=== PATIENT | female | born 1985 | race Caucasian/White ===

== ENCOUNTER 2018-08-06 13:07 | Emergency (ER) | payer OTHER ==
[2018-08-06] MEDS ORDERED: SODIUM CHLORIDE 0.9% 1,000 ML IV STA (14:46)
[2018-08-06 15:20] LABS: Basophils % (A) 0 %; Eosinophils # (A) 0.2 k/uL (0-0.7); Eosinophils % (A) 2 %; HCT 41.1 % (34.0-46.0); HGB 13.6 gm/dL (11.4-16.0); Lymphocytes # (A) 1.8 k/uL (1.0-4.8); Lymphocytes % (A) 22 %; MCH 28.5 pg (25.0-35.0); MCHC 33.2 g/dL (31.0-37.0); MCV 85.9 fL (80.0-100.0); Mean Platelet Volume 6.9; Monocytes # (A) 0.4 k/uL (0-1.0); Monocytes % (A) 5 %; Neutrophils # (A) 5.8 k/uL (1.3-7.7); Neutrophils % (A) 70 %; Platelet Count 418 k/uL (150-450); RBC 4.78 m/uL (3.80-5.40); RDW 13.3 % (11.5-15.5); WBC 8.4 k/uL (3.8-10.6)
[2018-08-06 15:27] LABS: Appearance,Urine Cloudy (Clear); Bilirubin,Urine Negative (Negative); Blood,Urine Large (Negative); Budding Yeast,Urine Moderate /hpf; Color,Urine Light Brown; Glucose,Urine (UA) Negative (Negative); Ketones,Urine Negative (Negative); Leukocyte Esterase,Urine Small (Negative); Nitrite,Urine Negative (Negative); Protein,Urine 1+ (Negative); RBC,Urine >182 /hpf (0-5); Specific Gravity,Urine 1.014 (1.001-1.035); Squamous Epithelial Cell,Urine 1 /hpf (0-4); Urobilinogen,Urine <2.0 mg/dL (<2.0)
[2018-08-06 15:40] LABS: ALT 31 U/L (9-52); AST 23 U/L (14-36); Albumin 4.6 g/dL (3.5-5.0); Alkaline Phosphatase 57 U/L (38-126); Anion Gap 9 mmol/L; Blood Urea Nitrogen 13 mg/dL (7-17); Calcium 9.4 mg/dL (8.4-10.2); Carbon Dioxide 26 mmol/L (22-30); Chloride 107 mmol/L (98-107); Glucose 83 mg/dL (74-99); Potassium 4.2 mmol/L (3.5-5.1); Sodium 142 mmol/L (137-145); Total Bilirubin 0.4 mg/dL (0.2-1.3); Total Protein 8.1 g/dL (6.3-8.2)
--- NOTE | 2018-08-06 15:50 | US ---
EXAMINATION TYPE: US transvaginal DATE OF EXAM: 08/06/2018 COMPARISON: NONE CLINICAL HISTORY: Patient bleeding x 1 month TECHNIQUE: Transvaginal (TV). Date of LMP: 07/08/18 EXAM MEASUREMENTS: Uterus: 8.4 x 3.2 x 4.4 cm Endometrial Stripe: 0.5 cm Right Ovary: 2.6 x 1.9 x 2.2 cm Left Ovary: 2.7 x 2.3 x 2.0 cm 1. Uterus: Retroverted wnl 2. Endometrium: 0.5cm 3. Right Ovary: wnl 4. Left Ovary: wnl 5. Bilateral Adnexa: wnl 6. Posterior cul-de-sac: wnl IMPRESSION: 1. Normal pelvic ultrasound
--- NOTE | 2018-08-06 16:21 | ED ---
General Adult HPI - General Chief complaint: Vaginal Bleeding Stated complaint: Female Source: patient, RN notes reviewed, old records reviewed Mode of arrival: ambulatory Limitations: no limitations - History of Present Illness Initial comments: 32-year-old female patient with an open past medical history presents to ED with approximately 1 month of vaginal bleeding. Patient states that she has history of irregular periods, history of tubal ligation proximally 6 years ago. Patient denies any oral contraception. Patient states that she had vaginal bleeding that started as light spotting approximately 1 month ago, has progressively increased, patient states that in the last 3 days she has soaked tampon in approximately 30 minutes approximately 4-5 times. Patient denies pain with urination. Patient denies syncope or presyncope. Patient has history of anemia. Patient denies chest pain, shortness of breath. Systemic: Pt denies fatigue, myalgia, fever/chills, rash. Pt denies weakness, night sweats, weight loss. Neuro: Pt denies headache, visual disturbances, syncope or pre-syncope. HEENT: Pt denies ocular discharge or irritation, otalgia, rhinorrhea, pharyngitis or notable lymphadenopathy. Cardiopulmonary: Pt denies chest pain, SOB, heart palpitations, dyspnea on exertion. Abdominal/GI: Pt denies abdominal pain, n/v/d. : Pt denies dysuria, burning w/ urination, frequency/urgency. Denies new onset urinary or bowel incontinence. MSK: Pt denies myalgia, loss of strength or function in extremities. Neuro: Pt denies new onset weakness, paresthesias. - Related Data Home Medications Medication Instructions Recorded Confirmed Multivitamin,Therapeutic [Thera] 1 tab PO DAILY 08/06/18 08/06/18 Allergies Allergy/AdvReac Type Severity Reaction Status Date / Time Iodinated Contrast- Oral and Allergy Nausea & Verified 08/06/18 14:16 IV Dye Vomiting Review of Systems ROS Statement: Those systems with pertinent positive or pertinent negative responses have been documented in the HPI. ROS Other: All systems not noted in ROS Statement are negative. Past Medical History Past Medical History: No Reported History History of Any Multi-Drug Resistant Organisms: None Reported Past Surgical History: Section, Tubal Ligation Past Psychological History: No Psychological Hx Reported Smoking Status: Current every day smoker Past Alcohol Use History: Occasional Past Drug Use History: None Reported General Exam - General Exam Comments Initial Comments: Constitutional: NAD, AOX3, Pt has pleasant affect. HEENT: NC/AT, trachea midline, neck supple, no lymphadenopathy. Posterior pharynx non erythematous, without exudates. External ears appear normal, without discharge. Mucous membranes moist. Eyes PERRLA, EOM intact. There is no scleral icterus. No pallor noted. Cardiopulmonary: RRR, no murmurs, rubs or gallops, no JVD noted. Lungs CTAB in anterior and posterior almonte. No peripheral edema. Abdominal exam: Abdomen soft and non-distended. Abdomen non-tender to palpation in all 4 quadrants. Bowel sounds active in LLQ. No hepatosplenomegaly. No ecchymosis Neuro: CN II-XII grossly intact. No nuchal rigidity. MSK: No posterior calf tenderness bilaterally, homans sign negative bilaterally. Posterior tibialis and radial pulse +2 bilaterally. Sensation intact in upper and lower extremities. Full active ROM in upper and lower extremities, 5/5 stregnth. Limitations: no limitations Course Vital Signs 08/06/18 13:13 Temperature 97.8 F Pulse Rate 92 Respiratory 18 Rate Blood Pressure 122/67 O2 Sat by Pulse 100 Oximetry Medical Decision Making - Medical Decision Making 32-year-old female patient with an open past medical history presents to ED with approximately 1 month of vaginal bleeding. Patient states that she has history of irregular periods, history of tubal ligation proximally 6 years ago. Patient denies any oral contraception. Patient states that she had vaginal bleeding that started as light spotting approximately 1 month ago, has progressively increased, patient states that in the last 3 days she has soaked tampon in approximately 30 minutes approximately 4-5 times. Patient denies pain with urination. Patient denies syncope or presyncope. Patient has history of anemia. Patient denies chest pain, shortness of breath. Physical exam did not reveal any acute pathology. Laboratory investigation was non- impressive. Hemoglobin stable. Transvaginal ultrasound did not reveal any acute pathology. Patient diagnosed with dysfunctional uterine bleeding. 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 Patient to follow with PCP in 1-2 days. Patient to return to ED if new signs or symptoms develop including syncope, presyncope, shortness of breath, dizziness, abdominal pain, chest pain, any other new symptoms. Case discussed with Dr. Quintana. - Lab Data Result diagrams: 08/06/18 15:00 08/06/18 15:00 Lab Results 08/06/18 08/06/18 08/06/18 Range/Units 15:00 15:00 15:00 WBC 8.4 (3.8-10.6) k/uL RBC 4.78 (3.80-5.40) m/uL Hgb 13.6 (11.4-16.0) gm/dL Hct 41.1 (34.0-46.0) % MCV 85.9 (80.0-100.0) fL MCH 28.5 (25.0-35.0) pg MCHC 33.2 (31.0-37.0) g/dL RDW 13.3 (11.5-15.5) % Plt Count 418 (150-450) k/uL Neutrophils % 70 % Lymphocytes % 22 % Monocytes % 5 % Eosinophils % 2 % Basophils % 0 % Neutrophils # 5.8 (1.3-7.7) k/uL Lymphocytes # 1.8 (1.0-4.8) k/uL Monocytes # 0.4 (0-1.0) k/uL Eosinophils # 0.2 (0-0.7) k/uL Basophils # 0.0 (0-0.2) k/uL Sodium 142 (137-145) mmol/L Potassium 4.2 (3.5-5.1) mmol/L Chloride 107 (98-107) mmol/L Carbon Dioxide 26 (22-30) mmol/L Anion Gap 9 mmol/L BUN 13 (7-17) mg/dL Creatinine 0.75 (0.52-1.04) mg/dL Est GFR (CKD-EPI)AfAm >90 (>60 ml/min/1.73 sqM) Est GFR (CKD-EPI)NonAf >90 (>60 ml/min/1.73 sqM) Glucose 83 (74-99) mg/dL Calcium 9.4 (8.4-10.2) mg/dL Total Bilirubin 0.4 (0.2-1.3) mg/dL AST 23 (14-36) U/L ALT 31 (9-52) U/L Alkaline Phosphatase 57 (38-126) U/L Total Protein 8.1 (6.3-8.2) g/dL Albumin 4.6 (3.5-5.0) g/dL Urine Color Urine Appearance (Clear) Urine pH (5.0-8.0) Ur Specific [place] (1.001-1.035) Urine Protein (Negative) Urine Glucose (UA) (Negative) Urine Ketones (Negative) Urine Blood (Negative) Urine Nitrite (Negative) Urine Bilirubin (Negative) Urine Urobilinogen (<2.0) mg/dL Ur Leukocyte Esterase (Negative) Urine RBC (0-5) /hpf Urine WBC (0-5) /hpf Ur Squamous Epith Cells (0-4) /hpf Urine Yeast (Budding) (None) /hpf Urine HCG, Qual Not Detected (Not Detectd) 08/06/18 Range/Units 15:00 WBC (3.8-10.6) k/uL RBC (3.80-5.40) m/uL Hgb (11.4-16.0) gm/dL Hct (34.0-46.0) % MCV (80.0-100.0) fL MCH (25.0-35.0) pg MCHC (31.0-37.0) g/dL RDW (11.5-15.5) % Plt Count (150-450) k/uL Neutrophils % % Lymphocytes % % Monocytes % % Eosinophils % % Basophils % % Neutrophils # (1.3-7.7) k/uL Lymphocytes # (1.0-4.8) k/uL Monocytes # (0-1.0) k/uL Eosinophils # (0-0.7) k/uL Basophils # (0-0.2) k/uL Sodium (137-145) mmol/L Potassium (3.5-5.1) mmol/L Chloride (98-107) mmol/L Carbon Dioxide (22-30) mmol/L Anion Gap mmol/L BUN (7-17) mg/dL Creatinine (0.52-1.04) mg/dL Est GFR (CKD-EPI)AfAm (>60 ml/min/1.73 sqM) Est GFR (CKD-EPI)NonAf (>60 ml/min/1.73 sqM) Glucose (74-99) mg/dL Calcium (8.4-10.2) mg/dL Total Bilirubin (0.2-1.3) mg/dL AST (14-36) U/L ALT (9-52) U/L Alkaline Phosphatase (38-126) U/L Total Protein (6.3-8.2) g/dL Albumin (3.5-5.0) g/dL Urine Color Light Brown Urine Appearance Cloudy H (Clear) Urine pH 8.0 (5.0-8.0) Ur Specific [place] 1.014 (1.001-1.035) Urine Protein 1+ H (Negative) Urine Glucose (UA) Negative (Negative) Urine Ketones Negative (Negative) Urine Blood Large H (Negative) Urine Nitrite Negative (Negative) Urine Bilirubin Negative (Negative) Urine Urobilinogen <2.0 (<2.0) mg/dL Ur Leukocyte Esterase Small H (Negative) Urine RBC >182 H (0-5) /hpf Urine WBC 40 H (0-5) /hpf Ur Squamous Epith Cells 1 (0-4) /hpf Urine Yeast (Budding) Moderate H (None) /hpf Urine HCG, Qual (Not Detectd) Disposition Clinical Impression: Dysfunctional uterine bleeding Disposition: HOME SELF-CARE Condition: Good Instructions: Dysfunctional Uterine Bleeding (ED) Additional Instructions: Patient to adhere to previously discussed treatment plan and will take medication(s) as directed. Patient to follow up with PCP in 1-2 days. Patient to return to ED if symptoms do not improve. Is patient prescribed a controlled substance at d/c from ED?: No Referrals: Michelle Olivas MD [Primary Care Provider] - 1-2 days Constance Addison DO [Doctor of Osteopathic Medicine] - 1-2 days Time of Disposition: 17:08
[2018-08-06 17:24] VITALS: BP 138/63; PULSE 80; RESP 17; TEMP 97.3
== END 2018-08-06 17:24 | disposition home or self-care (01) ==
LOC: EC 13:07
DX: N93.8 Other specified abnormal uterine and vaginal bleeding (principal); Z98.51 Tubal ligation status; Z91.041 Radiographic dye allergy status; F17.200 Nicotine dependence, unspecified, uncomplicated
CPT/HCPCS: 36415; 76830; 80053; 81001; 81025; 85025; 87086; 93976; 96360; 99284

== ENCOUNTER 2018-12-07 07:24 | Day surgery (SDC) | payer OTHER ==
--- NOTE | 2018-12-03 16:22 | HP ---
HISTORY AND PHYSICAL This is a 33-year-old female, 2, para 2-0-0-2, status post tubal ligation, who is presenting requesting NovaSure endometrial ablation. The patient states that her menses are lasting up to 14 days in duration with large clot passage. Endometrial biopsy was performed in the office revealing disordered proliferative endometrium, on 09/18/2018. The patient is aware of the risks and benefits of this procedure and would like to proceed. Information has been given and reviewed by her thoroughly. REVIEW OF SYSTEMS: Otherwise negative. PAST MEDICAL HISTORY: Negative. PAST SURGICAL HISTORY: section, tubal ligation. CURRENT MEDICATIONS: Multivitamin daily, vitamin C daily. ALLERGIES: Include contrast dye to which reports swelling. FAMILY HISTORY: Significant for hyperlipidemia and diabetes, as well as carpal tunnel syndrome. REPRODUCTIVE HISTORY: Significant for sections x2, 2009 and 2012. 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 EXAM: She is a pleasant white female who is 5 foot 2 inches, 222 pounds, BMI 40.1, blood pressure 110/80. HEENT exam reveals no thyromegaly, good dentition, no obvious lymphadenopathy. CHEST: Clear to auscultation in all almonte anteriorly and posteriorly. ABDOMEN: Soft, moderately obese, nontender, active bowel sounds, no organosplenomegaly. Breasts are bilaterally symmetric to inspection with no skin changes, axillary adenopathy, discernible lesions or masses or nipple discharge. Cardiac exam reveals regular rate and rhythm with no murmur, click, or rub. On pelvic exam, uterus is mobile, small, anteverted, anteflexed with negative adnexa bilaterally. Cervix is within normal limits to inspection. Vaginal vault is negative. Rectal exam reveals good tone, FIT, negative stool. IMPRESSION: Menometrorrhagia, requesting NovaSure endometrial ablation. PLAN: We will proceed with hysteroscopy, NovaSure endometrial ablation. The risks, benefits, and alternatives of this procedure have been discussed with the patient in detail, all questions answered. We will proceed as above. MMODL / IJN: [id number] /
[2018-12-04 11:08] VITALS: BMI 42.5
[~2018-12-07 07:24] MED LIST: DEXAMETHASONE SOD PHOSPHATE 10 MG/ML 1 ML VIAL IV ONE; LACTATED RINGERS 1,000 ML IV SCH; LIDOCAINE 1% 20 ML VIAL (10MG/ML) FOR IV START INTRADERMA PRN; MIDAZOLAM (PF) 2 MG/2 ML VIAL IV PRN; ONDANSETRON 4 MG/2 ML VIAL IVP ONE; Pre Op ABX Message 1 EACH MISC MISCELLANE ONE; fentaNYL (PF) 50 MCG/ML 2 ML AMP IV PRN
[2018-12-07] MEDS ORDERED: KETOROLAC 30 MG/ML 1 ML VIAL ONE (08:41)
[2018-12-07] MEDS ORDERED: MIDAZOLAM 2 MG/2 ML VIAL ONE (08:41)
[2018-12-07] MEDS ORDERED: PROPOFOL 10 MG/ML 20 ML VIAL IV ONE (08:41)
[2018-12-07] MEDS ORDERED: fentaNYL (PF) 50 MCG/ML 2 ML AMP ONE (08:41)
[2018-12-07 09:22] VITALS: TEMP 96.9
--- NOTE | 2018-12-07 09:26 | P.OP ---
Date of Procedure: 12/07/18 Preoperative Diagnosis: Menorrhagia Postoperative Diagnosis: same, normal-appearing endometrial cavity Procedure(s) Performed: hysteroscopy, NovaSure endometrial ablation Anesthesia: LOREEA Surgeon: Karla Abrams Estimated Blood Loss (ml): 10 IV fluids (ml): 500 Urine output (ml): 150 Pathology: none sent Condition: stable Disposition: PACU Description of Procedure: patient is brought to the operating suite and a general anesthetic is administered without difficulty. She's placed in the dorsal lithotomy position. The appropriate timeout was performed to assure proper patient and procedural identification. Urine hCG is negative. The cervix, vagina, perineal bodies are all prepped and draped in usual sterile fashion. Examination under anesthesia reveals a retroverted uterus, negative adnexa bilaterally. Bladder is drained for 150 mL of clear yellow urine. The weighted speculum was placed into the vagina. The anterior lip of the cervix is grasped with a double-tooth tenaculum. uterus sounds to a depth of 10.5 cm in the retroverted position. The cervix was gently and systematically dilated using Hanks dilators. Hysteroscope was placed and the cavity is distended with sterile saline. Inspection of the cavity reveals a large amount of proliferative-type appearing tissue, no obvious polyps, fibroids, septa, or defects. Hysteroscope was removed. NovaSure wand is placed and seated properly. Uterine depth of 0.5 cm, width of 4.6 cm is calibrated. For 45 seconds at [address] the procedure is carried out. After this the wand is reduced and removed. Hysteroscope was once again placed and the cavity is inspected, it is noted to contain a fair amount of chart-appearing tissue. Procedure appears to be thorough. All insurance a she was removed from the cervix. Anterior lip is clean and dry. All sponge needle and enhancement counts are correct at the end of procedure. Patient brought back to the recovery room in very good condition with stable vital signs including a pulse of 64, blood pressure 100/49, 100% O2 saturation. Toradol is given prior to leaving the operative suite. She will follow-up with me in the office in 2 weeks.
[2018-12-07 09:50] VITALS: RESP 16
[2018-12-07 10:25] VITALS: PULSE 62
[2018-12-07 10:36] VITALS: BP 125/75
== END 2018-12-07 10:49 | disposition home or self-care (01) ==
LOC: OR 07:24
PROVIDERS: ATTEND Obstetrics & Gynecology
DX: N92.0 Excessive and frequent menstruation with regular cycle (principal); Z98.51 Tubal ligation status; Z83.3 Family history of diabetes mellitus; Z84.89 Family history of other specified conditions; Z91.041 Radiographic dye allergy status
CPT/HCPCS: 81025; 58563; J2250; J1100; J2405; J3010; J1885; J2704

== ENCOUNTER 2022-03-22 10:57 | Emergency (ER) | payer OTHER ==
[2022-03-22 11:14] VITALS: RESP 18; TEMP 98.2
[2022-03-22] MEDS ORDERED: ONDANSETRON 4 MG/2 ML VIAL IVP STA (11:21)
[2022-03-22] MEDS ORDERED: SODIUM CHLORIDE 0.9% 1,000 ML IV STA (11:21)
[2022-03-22] MEDS ORDERED: HYDROmorphone 0.5 MG/0.5 ML SYRINGE IVP STA (11:21)
--- NOTE | 2022-03-22 11:26 | ED ---
Abdominal Pain HPI - General Chief Complaint: Abdominal Pain Stated Complaint: rt sided abd pain Time Seen by Provider: 03/22/22 11:15 Source: patient, RN notes reviewed, old records reviewed Mode of arrival: ambulatory Limitations: no limitations - History of Present Illness Initial Comments: This is a nontoxic appearing 36-year-old female that presents with right upper quadrant abdominal pain since 8:30 this morning after eating chicken and broccoli. Patient states that she had a similar episode earlier in the week which was consistent with gallbladder pain. 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 Patient denies any fevers, no vomiting but does have nausea. Denies diarrhea. MD Complaint: abdominal pain -: hour(s) (since 829) Location: RUQ Radiation: none Severity scale (1-10): 8 Quality: other (Squeezing) Consistency: constant Improves With: other (Manual pressure) Associated Symptoms: nausea - Related Data Home Medications Medication Instructions Recorded Confirmed Cholecalciferol [Vitamin D3 (25 50 mcg PO TH 03/22/22 03/22/22 Mcg = 1000 Iu)] Levothyroxine Sodium [Synthroid] 50 mcg PO DAILY 03/22/22 03/22/22 Allergies Allergy/AdvReac Type Severity Reaction Status Date / Time Iodinated Contrast Media AdvReac Nausea & Verified 03/22/22 12:05 [Iodinated Contrast- Oral Vomiting & and IV Dye] "Sweats" Review of Systems ROS Statement: Those systems with pertinent positive or pertinent negative responses have been documented in the HPI. ROS Other: All systems not noted in ROS Statement are negative. Past Medical History Past Medical History: No Reported History Additional Past Medical History / Comment(s): heavy, frequent periods History of Any Multi-Drug Resistant Organisms: None Reported Past Surgical History: Section, Tubal Ligation Additional Past Surgical History / Comment(s): C/S x2 Past Anesthesia/Blood Transfusion Reactions: Family History of Problems w/ Anesthesia, Postoperative Nausea & Vomiting (PONV) Additional Past Anesthesia/Blood Transfusion Reaction / Comment(s): aunt had a "reaction to anesthesia", not sure what, has never heard of malignant hyperthermia Past Psychological History: No Psychological Hx Reported Past Alcohol Use History: Occasional Past Drug Use History: None Reported General Exam Limitations: no limitations General appearance: alert, in no apparent distress Head exam: Present: atraumatic, normocephalic Eye exam: Present: normal appearance. Absent: scleral icterus, conjunctival injection Neck exam: Present: full ROM. Absent: meningismus Respiratory exam: Present: normal lung sounds bilaterally. Absent: respiratory distress, accessory muscle use Cardiovascular Exam: Present: regular rate, normal rhythm GI/Abdominal exam: Present: soft, tenderness (Right upper quadrant). Absent: rigid Extremities exam: Present: full ROM, normal capillary refill. Absent: tenderness, pedal edema Back exam: Present: normal inspection, full ROM. Absent: tenderness, CVA tenderness (R), CVA tenderness (L), rash noted Neurological exam: Present: alert, oriented X3, normal gait Psychiatric exam: Present: normal affect, normal mood Skin exam: Present: warm, dry, normal color. Absent: cyanosis, diaphoretic, petechiae, pallor Course Vital Signs 03/22/22 03/22/22 11:11 13:37 Temperature 98.2 F Pulse Rate 73 80 Respiratory 18 18 Rate Blood Pressure 141/83 116/70 O2 Sat by Pulse 100 94 L Oximetry Medical Decision Making - Medical Decision Making Ultrasound shows cholelithiasis with no suspicious changes or acute cholecystitis. Sludge and stones with no wall thickening. Liver and common bile duct within normal limits. Labs are within normal limits. Patient was given IV fluids along with Zofran and Dilaudid. Her pain has improved. She has had no vomiting emergency room. Vital signs are stable and she has been afebrile. She will be discharged to follow up with her primary care doctor and GI services. She was instructed to return to the emergency room with any concerning symptoms including increased pain, persistent nausea vomiting or fevers. she is agreeable to this plan of care. - Lab Data Result diagrams: 03/22/22 11:33 03/22/22 11:33 Lab Results 03/22/22 03/22/22 03/22/22 Range/Units 11:33 11:33 11:33 WBC 11.5 H (3.8-10.6) k/uL RBC 4.73 (3.80-5.40) m/uL Hgb 14.4 (11.4-16.0) gm/dL Hct 42.6 (34.0-46.0) % MCV 90.1 (80.0-100.0) fL MCH 30.5 (25.0-35.0) pg MCHC 33.8 (31.0-37.0) g/dL RDW 12.1 (11.5-15.5) % Plt Count 408 (150-450) k/uL MPV 7.4 Neutrophils % 73 % Lymphocytes % 18 % Monocytes % 5 % Eosinophils % 2 % Basophils % 1 % Neutrophils # 8.4 H (1.3-7.7) k/uL Lymphocytes # 2.1 (1.0-4.8) k/uL Monocytes # 0.6 (0-1.0) k/uL Eosinophils # 0.2 (0-0.7) k/uL Basophils # 0.1 (0-0.2) k/uL PT 11.1 (9.0-12.0) sec INR 1.0 (<1.2) APTT 24.7 (22.0-30.0) sec Sodium 140 (137-145) mmol/L Potassium 3.7 (3.5-5.1) mmol/L Chloride 107 (98-107) mmol/L Carbon Dioxide 27 (22-30) mmol/L Anion Gap 6 mmol/L BUN 9 (7-17) mg/dL Creatinine 0.67 (0.52-1.04) mg/dL Est GFR (CKD-EPI)AfAm >90 (>60 ml/min/1.73 sqM) Est GFR (CKD-EPI)NonAf >90 (>60 ml/min/1.73 sqM) Glucose 96 (74-99) mg/dL Plasma Lactic Acid [place] (0.7-2.0) mmol/L Calcium 9.2 (8.4-10.2) mg/dL Total Bilirubin 0.6 (0.2-1.3) mg/dL AST 47 H (14-36) U/L ALT 42 H (4-34) U/L Alkaline Phosphatase 58 (38-126) U/L Total Protein 7.8 (6.3-8.2) g/dL Albumin 4.5 (3.5-5.0) g/dL Amylase 44 (30-110) U/L Lipase 70 (23-300) U/L Urine Color Urine Appearance (Clear) Urine pH (5.0-8.0) Ur Specific [place] (1.001-1.035) Urine Protein (Negative) Urine Glucose (UA) (Negative) Urine Ketones (Negative) Urine Blood (Negative) Urine Nitrite (Negative) Urine Bilirubin (Negative) Urine Urobilinogen (<2.0) mg/dL Ur Leukocyte Esterase (Negative) Urine HCG, Qual (Not Detectd) 03/22/22 03/22/22 03/22/22 Range/Units 11:33 11:33 11:33 WBC (3.8-10.6) k/uL RBC (3.80-5.40) m/uL Hgb (11.4-16.0) gm/dL Hct (34.0-46.0) % MCV (80.0-100.0) fL MCH (25.0-35.0) pg MCHC (31.0-37.0) g/dL RDW (11.5-15.5) % Plt Count (150-450) k/uL MPV Neutrophils % % Lymphocytes % % Monocytes % % Eosinophils % % Basophils % % Neutrophils # (1.3-7.7) k/uL Lymphocytes # (1.0-4.8) k/uL Monocytes # (0-1.0) k/uL Eosinophils # (0-0.7) k/uL Basophils # (0-0.2) k/uL PT (9.0-12.0) sec INR (<1.2) APTT (22.0-30.0) sec Sodium (137-145) mmol/L Potassium (3.5-5.1) mmol/L Chloride (98-107) mmol/L Carbon Dioxide (22-30) mmol/L Anion Gap mmol/L BUN (7-17) mg/dL Creatinine (0.52-1.04) mg/dL Est GFR (CKD-EPI)AfAm (>60 ml/min/1.73 sqM) Est GFR (CKD-EPI)NonAf (>60 ml/min/1.73 sqM) Glucose (74-99) mg/dL Plasma Lactic Acid [place] 1.0 (0.7-2.0) mmol/L Calcium (8.4-10.2) mg/dL Total Bilirubin (0.2-1.3) mg/dL AST (14-36) U/L ALT (4-34) U/L Alkaline Phosphatase (38-126) U/L Total Protein (6.3-8.2) g/dL Albumin (3.5-5.0) g/dL Amylase (30-110) U/L Lipase (23-300) U/L Urine Color Light Yellow Urine Appearance Clear (Clear) Urine pH 7.5 (5.0-8.0) Ur Specific [place] 1.009 (1.001-1.035) Urine Protein Negative (Negative) Urine Glucose (UA) Negative (Negative) Urine Ketones Negative (Negative) Urine Blood Negative (Negative) Urine Nitrite Negative (Negative) Urine Bilirubin Negative (Negative) Urine Urobilinogen <2.0 (<2.0) mg/dL Ur Leukocyte Esterase Negative (Negative) Urine HCG, Qual Not Detected (Not Detectd) Disposition Clinical Impression: Cholelithiasis Disposition: HOME SELF-CARE Condition: Good Instructions (If sedation given, give patient instructions): Gallstones (ED) Additional Instructions: Follow-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 Return to the emergency room with any new or concerning symptoms including increased pain, fevers, or persistent nausea vomiting. Is patient prescribed a controlled substance at d/c from ED?: No Referrals: Michelle Olivas MD [Primary Care Provider] - 1-2 days Ana Roberto MD [STAFF PHYSICIAN] - 1-2 days Time of Disposition: 13:21
[2022-03-22 11:43] LABS: Basophils # (A) 0.1 k/uL (0-0.2); Basophils % (A) 1 %; Eosinophils # (A) 0.2 k/uL (0-0.7); Eosinophils % (A) 2 %; HCT 42.6 % (34.0-46.0); HGB 14.4 gm/dL (11.4-16.0); Lymphocytes # (A) 2.1 k/uL (1.0-4.8); Lymphocytes % (A) 18 %; MCH 30.5 pg (25.0-35.0); MCHC 33.8 g/dL (31.0-37.0); MCV 90.1 fL (80.0-100.0); Mean Platelet Volume 7.4; Monocytes # (A) 0.6 k/uL (0-1.0); Monocytes % (A) 5 %; Neutrophils # (A) 8.4 k/uL (1.3-7.7); Neutrophils % (A) 73 %; Platelet Count 408 k/uL (150-450); RBC 4.73 m/uL (3.80-5.40); RDW 12.1 % (11.5-15.5); WBC 11.5 k/uL (3.8-10.6)
[2022-03-22 11:56] LABS: ALT 42 U/L (4-34); AST 47 U/L (14-36); African American GFR (CKD) >90 (>60 ml/min/1.73 sqM); Albumin 4.5 g/dL (3.5-5.0); Alkaline Phosphatase 58 U/L (38-126); Amylase 44 U/L (30-110); Anion Gap 6 mmol/L; Blood Urea Nitrogen 9 mg/dL (7-17); Calcium 9.2 mg/dL (8.4-10.2); Carbon Dioxide 27 mmol/L (22-30); Chloride 107 mmol/L (98-107); Glucose 96 mg/dL (74-99); Lipase 70 U/L (23-300); Non-African American GFR(CKD) >90 (>60 ml/min/1.73 sqM); Potassium 3.7 mmol/L (3.5-5.1); Sodium 140 mmol/L (137-145); Total Bilirubin 0.6 mg/dL (0.2-1.3); Total Protein 7.8 g/dL (6.3-8.2)
[2022-03-22 12:06] LABS: Partial Thromboplastin Time 24.7 sec (22.0-30.0); Prothrombin Time 11.1 sec (9.0-12.0)
--- NOTE | 2022-03-22 12:29 | US ---
EXAMINATION TYPE: US abdomen limited DATE OF EXAM: 03/22/2022 COMPARISON: NONE CLINICAL HISTORY: gallbladder RUQ pain. TECHNIQUE: Multiple sonographic images of the right upper quadrant are obtained. FINDINGS: EXAM MEASUREMENTS: Liver Length: 15.7 Gallbladder Wall: 0.2m CBD: 0.2m Right Kidney: 10.3 x 4.6 x 4.9cm PIGMENT PUSHER NOTES: Pancreas: Obscured by bowel gas Liver: wnl Gallbladder: sludge and stones, no wall thickening, stone near or in neck CBD: wnl Right Kidney: limited visualization due to overlying bowel, appears wnl. IMPRESSION: 1. Cholelithiasis. No suspicious changes of acute cholecystitis.
[2022-03-22 12:51] LABS: Appearance,Urine Clear (Clear); Bilirubin,Urine Negative (Negative); Blood,Urine Negative (Negative); Color,Urine Light Yellow; Glucose,Urine (UA) Negative (Negative); Ketones,Urine Negative (Negative); Leukocyte Esterase,Urine Negative (Negative); Nitrite,Urine Negative (Negative); PH, Urine 7.5 (5.0-8.0); Protein,Urine Negative (Negative); Specific Gravity,Urine 1.009 (1.001-1.035); Urobilinogen,Urine <2.0 mg/dL (<2.0)
[2022-03-22 13:38] VITALS: BP 116/70; PULSE 80
== END 2022-03-22 13:38 | disposition home or self-care (01) ==
LOC: EC 10:57
DX: K81.9 Cholecystitis, unspecified (principal); Z91.041 Radiographic dye allergy status
CPT/HCPCS: 36415; 80053; 82150; 83605; 83690; 85025; 85610; 85730; 81003; 81025; 76705; 99284; 96374; 96375; 96361 ×2; J2405; J1170

== ENCOUNTER → 2022-09-25 | Outpatient (CLI) | payer OTHER ==
--- NOTE | 2022-09-26 07:46 | XR ---
EXAMINATION TYPE: XR lumbosacral spine min 4V DATE OF EXAM: 09/25/2022 5:08 PM INDICATION: Patient age:Female; 37 years old; Reason for study: [id number] LBP; [facility]. COMPARISON: None TECHNIQUE: Frontal, lateral , bilateral oblique and coned in L5-S1 lateral views of the spine. FINDINGS: No evidence of any acute osseous pathology. No evidence of loss of vertebral body height i s seen. There is normal alignment of the lumbar vertebral bodies. No significant degeneration changes throughout the spine. IMPRESSION: 1. No acute fracture. 2. No significant multilevel disc degeneration.
== END | disposition home or self-care (01) ==
LOC: RADXRYALE 16:54
PROVIDERS: ATTEND Internal Medicine
DX: M54.50 Low back pain, unspecified (principal)
CPT/HCPCS: 72110